=== PATIENT | male | born 1985 | race Caucasian/White ===

== ENCOUNTER 2016-07-14 21:23 | Emergency (ER) | payer OTHER | END 2016-07-14 23:07 | disposition home or self-care (01) | LOC: ER 21:23 | DX: N34.1 Nonspecific urethritis (principal); K21.9 Gastro-esophageal reflux disease without esophagitis; F17.210 Nicotine dependence, cigarettes, uncomplicated | CPT/HCPCS: 36415; 96361; 96365; 96375; 96376; J0696; J1885; J2550 ==